=== PATIENT | female | born 1965 ===

== ENCOUNTER → 2023-02-17 08:38 | Outpatient (CLI) | payer BC, SELFPAY ==
--- NOTE | ~2023-02-17 | MR_ITS ---
MRI of the lumbar spine Clinical History: Back pain Technique: Axial T2-weighted images, and sagittal T1-weighted, T2-weighted, and T2 fat-sat images wer e acquired. Findings: There is no fracture or subluxation of the lumbar spine. Vertebral bodies maintain normal h eight and alignment. No suspicious bone marrow signal abnormality seen. At L1-L2 and L2-L3, there is moderate facet arthropathy without disc bulge or herniation. No spinal c anal stenosis or neural foraminal narrowing at these levels. At L3-L4 and L4-L5, there is severe facet arthropathy bilaterally. No significant disc bulge or herni ation at these levels. No spinal canal stenosis or neural foraminal narrowing at these levels. At L5-S1, there is moderate facet arthropathy bilaterally. No disc bulge or herniation. No spinal can al stenosis or neural foraminal narrowing. Paravertebral soft tissues are unremarkable. 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 No spinal canal stenosis or neural foraminal narrowing. Reviewed, dictated and finalized at [facility]. 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 No spinal canal stenosis or neural foraminal narrowing.
== END ==
PROVIDERS: PCP Internal Medicine
DX: M54.50 Low back pain, unspecified (principal)
CPT/HCPCS: 72148